=== PATIENT | female | born 1955 | race Caucasian/White ===

== ENCOUNTER 2017-02-22 20:25 | Emergency (ER) | payer OTHER ==
[~2017-02-22] VITALS: Ht 160 cm; Wt 117.1 kg
[~2017-02-22 20:25] MED LIST: LEVO50TA51 PO; ZOFR4TAB3 PO
[2017-02-22 20:33] VITALS: BP 143/69; PULSE 68; RESP 12; TEMP 98.2; O2SAT 100
[2017-02-22] MEDS ORDERED: LEVO75TA3 PO (21:29)
[2017-02-22 22:24] LABS: AUTOMATED NEUTROPHIL # 4.5 TH/MM3 (1.8-7.7); BASOPHIL % 0.5 % (0.0-2.0); EOSINOPHIL # 0.2 TH/MM3 (0-0.4); EOSINOPHIL % 2.5 % (0.0-4.0); HEMATOCRIT 36.5 % (35.0-46.0); LYMPH % 32.6 % (9.0-44.0); LYMPHOCYTE # 2.6 TH/MM3 (1.0-4.8); MEAN CELL VOLUME 74.7 FL (80.0-100.0); MEAN CORPUSCULAR HEMOGLOBIN 24.4 PG (27.0-34.0); MEAN CORPUSCULAR HGB CONC 32.7 % (32.0-36.0); MONO % 9.7 % (0.0-8.0); NEUT % 54.7 % (16.0-70.0); PLATELET COUNT 286 TH/MM3 (150-450); RED BLOOD COUNT 4.88 MIL/MM3 (4.00-5.30); RED CELL DISTRIBUTION WIDTH 14.6 % (11.6-17.2); WHITE BLOOD COUNT 8.1 TH/MM3 (4.0-11.0)
[2017-02-22 22:28] VITALS: BP 130/57; PULSE 63; RESP 18; O2SAT 96
[2017-02-22 22:33] LABS: CHLORIDE 105 MEQ/L (98-107); POTASSIUM 4.1 MEQ/L (3.5-5.1); SODIUM (NA) 140 MEQ/L (136-145)
[2017-02-22 22:37] LABS: ANION GAP 7 MEQ/L (5-15); BICARBONATE 27.7 MEQ/L (21.0-32.0); BLOOD UREA NITROGEN 17 MG/DL (7-18)
[2017-02-22 22:40] LABS: ALT (GPT) 17 U/L (10-53); AST (GOT) 13 U/L (15-37); GLOMERULAR FILTRATION RATE 85 ML/MIN (>89)
[2017-02-22 22:41] LABS: TOTAL BILIRUBIN ADULT 0.2 MG/DL (0.2-1.0)
[2017-02-22 22:42] LABS: ALKALINE PHOSPHATASE 111 U/L (45-117)
--- NOTE | 2017-02-22 22:53 | RADRPT ---
EXAM DATE/TIME: 02/22/2017 21:41 [facility] COMPARISON: CHEST PA & LAT, October 20, 2015, 4:31. INDICATIONS : Shortness of breath. MEDICAL HISTORY : None. SURGICAL HISTORY : None. ENCOUNTER: Initial ACUITY: 2 days PAIN SCORE: 0/10 LOCATION: Bilateral chest FINDINGS: PA and lateral views of the chest demonstrate the lungs to be symmetrically aerated without evidence of mass, infiltrate or effusion. The cardiomediastinal contours are unremarkable. Osseous structure s are intact. CONCLUSION: No infiltrate seen. Willy Banks MD on February 22, 2017 at 22:51 Board Certified Radiologist. This report was verified electronically.
[2017-02-22 22:54] LABS: HEMO FLAGS AUTO DIFF
--- NOTE | 2017-02-22 23:17 | PD ---
HPI Chief Complaint: Cardiac Complaint Time Seen by Provider: 21:25 Travel History International Travel<30 days: No Contact w/Intl Traveler<30days: No Traveled to known affect area: No History of Present Illness HPI Patient is a 61 year old female who comes in complaining of episodes of palpitations, feeling hot, and tiredness. She says this has been going on for a few weeks now. She says she thinks it is related to her thyroid and she has a slip to have blood work done. She says she came in because she is feeling very tired. She denies having any chest pain. She does says she gets short of breath with walking. She has some swelling to her legs, but his has been going on for the past year. She denies any recent travel. She denies headache or lightheadedness. She denies fever or chills. 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) Other Surgery: Yes (MELANOMA REMOVED LEFT ARM 1993, SKIN CANCER REMOVED LEFT LEG 03/1403/28/13) Social History Alcohol Use: No Tobacco Use: No Substance Use: No Allergies-Medications (Allergen,Severity, Reaction): Coded Allergies: Clindamycin (Verified Allergy, Severe, Anaphylaxis, 02/22/17) Erythromycin (Verified Allergy, Severe, Shortness of Breath, 02/22/17) Keflex (Verified Allergy, Severe, HIVES, 02/22/17) Penicillin (Verified Allergy, Severe, HIVES, 02/22/17) Sulfa (Verified Allergy, Severe, Shortness of Breath, 02/22/17) Tetanus Toxoid (Verified Allergy, Severe, Swelling, 02/22/17) Toradol (Verified Allergy, Severe, Numbness, 02/22/17) Codeine (Verified Allergy, Intermediate, "MAKES ME HIGH", 02/22/17) Bactrim (Verified Allergy, Mild, 02/22/17) Uncoded Allergies: SHALOM HAND CREAM (Allergy, Severe, Rash, 07/16/12) Reported Meds & Prescriptions Reported Meds & Active Scripts Active Reported Levothyroxine (Levothyroxine Sodium) 75 Mcg Tab 75 Mcg PO DAILY Review of Systems Except as stated in HPI: all other systems reviewed are Neg General / Constitutional: No: Fever, Chills Eyes: No: Blurred Vision HENT: No: Headaches, Lightheadedness Cardiovascular: Positive: Palpitations, No: Chest Pain or Discomfort Respiratory: No: Cough Gastrointestinal: No: Nausea, Vomiting, Abdominal Pain Musculoskeletal: Positive: Edema, No: Myalgias, Pain Skin: No Rash, No Change in Pigmentation Neurologic: No: Weakness, Dizziness Physical Exam Narrative GENERAL: Awake and alert, in no acute distress. SKIN: Focused skin assessment warm/dry. HEAD: Atraumatic. Normocephalic. EYES: Pupils equal and round. No scleral icterus. ENT: Mucous membranes pink and moist. NECK: Trachea midline. No JVD. CARDIOVASCULAR: Regular rate and rhythm. No murmur appreciated. RESPIRATORY: No accessory muscle use. Clear to auscultation. Breath sounds equal bilaterally. GASTROINTESTINAL: Abdomen soft, non-tender, nondistended. MUSCULOSKELETAL: No obvious deformities. No clubbing. No cyanosis. 1+ edema bilateral lower extremities. No calf tenderness. NEUROLOGICAL: Awake and alert. No obvious cranial nerve deficits. Motor grossly within normal limits. Normal speech. PSYCHIATRIC: Appropriate mood and affect; insight and judgment normal. Data Data Last Documented VS Vital Signs Date Time Temp Pulse Resp B/P Pulse Ox O2 Delivery O2 Flow Rate FiO2 02/22/17 22:28 63 18 130/57 96 Room Air 02/22/17 20:33 98.2 Orders Iv Access Insert/Monitor (02/22/17 21:38) Complete Blood Count With Diff (02/22/17 21:38) Comprehensive Metabolic Panel (02/22/17 21:38) Troponin I (02/22/17 21:38) B-Type Natriuretic Peptide (02/22/17 21:38) Chest, Pa & Lat (02/22/17 ) Electrocardiogram (02/22/17 ) Thyroid Stimulating Hormone (02/22/17 21:38) Thyroxine (T4) (02/22/17 21:38) Free T3 (02/22/17 21:38) Labs Laboratory Tests Test 02/22/17 22:18 White Blood Count 8.1 TH/MM3 Red Blood Count 4.88 MIL/MM3 Hemoglobin 11.9 GM/DL Hematocrit 36.5 % Mean Corpuscular Volume 74.7 FL Mean Corpuscular Hemoglobin 24.4 PG Mean Corpuscular Hemoglobin 32.7 % Concent Red Cell Distribution Width 14.6 % Platelet Count 286 TH/MM3 Mean Platelet Volume 7.1 FL Neutrophils (%) (Auto) 54.7 % Lymphocytes (%) (Auto) 32.6 % Monocytes (%) (Auto) 9.7 % Eosinophils (%) (Auto) 2.5 % Basophils (%) (Auto) 0.5 % Neutrophils # (Auto) 4.5 TH/MM3 Lymphocytes # (Auto) 2.6 TH/MM3 Monocytes # (Auto) 0.8 TH/MM3 Eosinophils # (Auto) 0.2 TH/MM3 Basophils # (Auto) 0.0 TH/MM3 CBC Comment AUTO DIFF Sodium Level 140 MEQ/L Potassium Level 4.1 MEQ/L Chloride Level 105 MEQ/L Carbon Dioxide Level 27.7 MEQ/L Anion Gap 7 MEQ/L Blood Urea Nitrogen 17 MG/DL Creatinine 0.70 MG/DL Estimat Glomerular Filtration 85 ML/MIN Rate Random Glucose 97 MG/DL Calcium Level 8.9 MG/DL Total Bilirubin 0.2 MG/DL Aspartate Amino Transf 13 U/L (AST/SGOT) Alanine Aminotransferase 17 U/L (ALT/SGPT) Alkaline Phosphatase 111 U/L Troponin I LESS THAN 0.02 NG/ML B-Type Natriuretic Peptide 26 PG/ML Total Protein 7.5 GM/DL Albumin 3.3 GM/DL Thyroid Stimulating Hormone 7.260 uIU/ML [address] [place] [address] Medical Decision Making Medical Screen Exam Complete: Yes Emergency Medical Condition: Yes Medical Record Reviewed: Yes Interpretation(s) ECG shows NSR at 66, no ST elevation or depression, normal intervals. Differential Diagnosis dehydration vs electrolyte abnormalities vs hypothyroid vs hyperthyroid. Narrative Course Patient is a 61 year old female who comes in complaining of tiredness and palpitations. Exam shows bilateral lower extremity edema, no other abnormalities. IV established, labs sent. Labs show an elevated TSH, no other acute abnormalities. CXR shows no evidence of pulmonary edema or cardiomegaly. Patient advised to follow up with her PCP for adjustment of her thyroid medications. Advised of symptoms and reasons to return to the ED. Advised to return for any worsening symptoms. Diagnosis Primary Impression: Hypothyroid Qualified Code: E03.9 - Hypothyroidism, unspecified type Patient Instructions: General Instructions, Hypothyroidism (ED), Palpitations ( ED) Additional Instructions: Follow up with your doctor. Return to the ED as needed for any worsening symptoms. Disposition: 01 DISCHARGE HOME Condition: Stable Judith Green MD Feb 22, 2017 23:17
[2017-02-22 23:22] LABS: PLATELET ESTIMATE SMEAR NORMAL (NORMAL); PLATELET MORPHOLOGY NORMAL (NORMAL); SCAN/DIFF AUTO DIFF CONFIRMED
[2017-02-23 00:29] VITALS: BP 108/75
[2017-02-23 00:56] LABS: FREE T3 2.83 PG/ML (2.18-3.98); THYROXINE (T4) 12.3 MCG/DL (4.8-13.9)
--- NOTE | 2017-02-23 12:19 | EKG ---
Date Performed: 02/22/2017 Time Performed: 22:08:39 PTAGE: 61 years EKG: Sinus rhythm NORMAL ECG NO PREVIOUS TRACING DOCTOR: Shreyas Camacho Interpretating Date/Time 02/23/2017 12:17:27
== END 2017-02-23 00:30 | disposition home or self-care (01) ==
LOC: PHED 20:25
DX: E03.9 Hypothyroidism, unspecified (principal); R00.2 Palpitations; R53.83 Other fatigue; R06.02 Shortness of breath; R60.0 Localized edema; Z87.39 Personal history of other diseases of the musculoskeletal system and connective tissue; Z85.828 Personal history of other malignant neoplasm of skin
CPT/HCPCS: 71020; 80053; 83880; 84436; 84443; 84481; 84484; 85025; 93005; 99285